=== PATIENT | female | born 1965 | race Caucasian/White ===

== ENCOUNTER 2017-07-23 12:17 | Emergency (ER) | payer OTHER, MEDICAID ==
[2017-07-23] MEDS ORDERED: SODIUM CHLORIDE 0.9% FLUSH 10 ML FLUSH IV FLUSH (12:30)
[2017-07-23] MEDS: SODIUM CHLOR 0.9% 1000 ML INJ 1,000 ML IV (12:44)
[2017-07-23] MEDS: ONDANSETRON HCL 4 MG/2 ML VIAL IVP (12:44)
[2017-07-23] MEDS: KETOROLAC TROMETHAMINE 30 MG/ML (IVP) VIAL IVP (12:45)
[2017-07-23 12:59] LABS: AUTOMATED NEUTROPHIL # 12.1 TH/MM3 (1.8-7.7); BASOPHIL # 0.1 TH/MM3 (0-0.2); BASOPHIL % 0.5 % (0.0-2.0); EOSINOPHIL % 0.2 % (0.0-4.0); HEMATOCRIT 40.1 % (35.0-46.0); HEMO FLAGS DIFF FINAL; HEMOGLOBIN 13.7 GM/DL (11.6-15.3); LYMPH % 10.8 % (9.0-44.0); LYMPHOCYTE # 1.7 TH/MM3 (1.0-4.8); MEAN CELL VOLUME 86.1 FL (80.0-100.0); MEAN CORPUSCULAR HEMOGLOBIN 29.4 PG (27.0-34.0); MEAN CORPUSCULAR HGB CONC 34.2 % (32.0-36.0); MEAN PLATELET VOLUME 8.9 FL (7.0-11.0); MONO % 9.6 % (0.0-8.0); MONOCYTE # 1.5 TH/MM3 (0-0.9); NEUT % 78.9 % (16.0-70.0); PLATELET COUNT 261 TH/MM3 (150-450); RED BLOOD COUNT 4.66 MIL/MM3 (4.00-5.30); WHITE BLOOD COUNT 15.4 TH/MM3 (4.0-11.0)
[2017-07-23 13:04] LABS: BACTERIA, URINE MOD /hpf; BILIRUBIN, URINE NEG (NEG); BLOOD, URINE MOD (NEG); COMMENT (UR) CULTURE INDICATED; CULTURE IF INDICATED CULTURE INDICATED; GLUCOSE,URINE 1000 mg/dL (NEG); KETONE, URINE NEG (NEG); MUCUS URINE FEW /lpf (OCC); NITRITE,URINE NEG (NEG); PH, URINE 5.5 (5.0-8.5); SQUAMOUS EPITHELIAL CELL URINE 1 /hpf (0-5); URINE COLOR LIGHT-YELLOW (YELLW/STRAW); URINE LEUKOCYTE ESTERASE LARGE (NEG); WHITE BLOOD CELL CLUMPS MANY
[2017-07-23 13:41] LABS: ALBUMIN 2.9 GM/DL (3.4-5.0); ALKALINE PHOSPHATASE 123 U/L (45-117); ALT (GPT) 17 U/L (10-53); ANION GAP 10 MEQ/L (5-15); AST (GOT) 11 U/L (15-37); BICARBONATE 25.3 MEQ/L (21.0-32.0); BLOOD UREA NITROGEN 19 MG/DL (7-18); CALCIUM 9.7 MG/DL (8.5-10.1); CHLORIDE 100 MEQ/L (98-107); CREATININE 1.22 MG/DL (0.50-1.00); GLOMERULAR FILTRATION RATE 46 ML/MIN (>89); GLUCOSE,RANDOM 332 MG/DL (74-106); LIPASE 723 U/L (73-393); POTASSIUM 4.2 MEQ/L (3.5-5.1); SODIUM (NA) 135 MEQ/L (136-145); TOTAL BILIRUBIN ADULT 0.6 MG/DL (0.2-1.0); TOTAL PROTEIN 7.7 GM/DL (6.4-8.2)
[2017-07-23] MEDS: ACETAMINOPHEN/HYDROcodone 325 MG/5 MG TAB PO (14:11)
[2017-07-23] MEDS: cefTRIAXone INJ 1,000 MG in SODIUM CHLORIDE 0.9% INJ 100 ML IV (14:11)
== END 2017-07-23 14:59 | disposition home or self-care (01) ==
LOC: NEPD 12:17
DX: N20.0 Calculus of kidney (principal); N39.0 Urinary tract infection, site not specified; B96.1 Klebsiella pneumoniae [K. pneumoniae] as the cause of diseases classified elsewhere; R31.9 Hematuria, unspecified; K80.20 Calculus of gallbladder without cholecystitis without obstruction; I10 Essential (primary) hypertension; I25.2 Old myocardial infarction; E78.00 Pure hypercholesterolemia, unspecified; E11.9 Type 2 diabetes mellitus without complications; J44.9 Chronic obstructive pulmonary disease, unspecified; M79.7 Fibromyalgia; F17.210 Nicotine dependence, cigarettes, uncomplicated; Z86.14 Personal history of Methicillin resistant Staphylococcus aureus infection; Z87.442 Personal history of urinary calculi; Z79.4 Long term (current) use of insulin; Z79.899 Other long term (current) drug therapy
CPT/HCPCS: 74176; 80053; 81001; 83690; 85025; 87077; 87086; 87186; 96361; 96365; 96375; 99284-25

== ENCOUNTER 2017-08-05 20:52 | Observation (INO) | payer OTHER ==
[~2017-08-05 20:52] MED LIST: ALBUAER3 INH; ATOR80TA45 PO; CEPH-460 PO; CETI10 PO; DOXA1TAB35 PO; DULO1CAP3 PO; FLUT50SP EACH NARE; HUMALOG SQ; LEVEMIR SQ; LOSA100T PO; LYRI225C PO; NORC5TAB PO; TAMS5CAP PO; TIZA4CAP3 PO; ZOFR4TAB3 SL
[2017-08-05 21:00] VITALS: BP 153/89; PULSE 99; RESP 21; TEMP 97.6; O2SAT 96
[2017-08-05] MEDS ORDERED: ASPIRIN 81 MG CHEW TAB PO ONE (21:15)
[2017-08-05] MEDS ORDERED: SODIUM CHLORIDE 0.9% FLUSH 10 ML FLUSH IVF PRN (21:15)
[2017-08-05] MEDS ORDERED: NITROGLYCERIN 2% OINT 1 GM PACKET TOP ONE (21:15)
[2017-08-05] MEDS ORDERED: SODIUM CHLORID 0.9% 500 ML INJ 500 ML IV ONE (21:15)
--- NOTE | 2017-08-05 21:20 | PD ---
HPI Chief Complaint: Respiratory Distress Time Seen by Provider: 21:05 Travel History International Travel<30 days: No Contact w/Intl Traveler<30days: No Traveled to known affect area: No History of Present Illness HPI The patient is a 52-year-old female who presents to the emergency department for chest pain. The patient states she was walking around [facility] earlier today when she became short of breath and lightheaded. The patient states she would walk several feet and her symptoms would progress, she felt like she was going to "pass out". The patient then developed some chest tightness that is nonradiating, but is associated with mild nausea. The patient does have a history of similar symptoms 2 years ago and states that she had a coronary stent placed at that time. The patient does have a history of hypertension, hyperlipidemia, tobacco use, and diabetes. The patient is currently followed by her force variation equipment tender, Dr. Cohen. The patient does note she has exertional shortness of breath with her symptoms. The patient went home and tried an albuterol nebulizer, however, this did not improve her symptoms. Symptoms are moderate. The patient does take aspirin daily, however, has not taken her aspirin today. The patient denies any recent hospitalizations, surgeries, travel, or history of pulmonary embolism/DVT. PFSH Past Medical History Hx Anticoagulant Therapy: Yes (81mg a day) Cardiovascular Problems: Yes High Cholesterol: Yes COPD: Yes Diabetes: Yes Fibromyalgia: Yes Hypertension: Yes Musculoskeletal: Yes (FIBROMYALGIA ) Respiratory: Yes Integumentary: Yes (HX MRSA OF NAVEL AND GREAT TOE) Menopausal: Yes Tubal Ligation: Yes (1989) Past Surgical History Genitourinary Surgery: Yes (LITHROTRIPSY) Oral Surgery: Yes (lithotripsy) Tonsillectomy: Yes Social History Alcohol Use: No (SOC) Tobacco Use: Yes (03/20 PPD) Substance Use: No Allergies-Medications (Allergen,Severity, Reaction): Coded Allergies: tomato (Unverified Allergy, Unknown, hives, 08/05/17) Uncoded Allergies: CITRUS (Adverse Reaction, Unknown, HIVES, 11/28/15) Reported Meds & Prescriptions Reported Meds & Active Scripts Active Zofran Odt (Ondansetron Odt) 4 Mg Tab 4 Mg SL Q8HR PRN Reported Naproxen 250 Mg Tab 250 Mg PO BID Levemir Inj (Insulin Detemir) 1,000 unit/ 10 ML Vial 60 Units SQ BID Do not mix with any other Insulin. Humalog Inj (Insulin Human Lispro) 1,000 Unit/10 Ml Vial 5-25 Units SQ ACHS Max dose at bedtime:( )units; sugars < 70,(0)units; sugars 150-199,(5)units; sugars 200-249,(10)units; sugars 250-299,(15)units; sugars 300-349,(20)units; sugars more than 349,(25)units. Proair Hfa 8.5 GM Inh (Albuterol Sulfate) 90 Mcg/Act Aer 2 Puff INH Q4-6H PRN 108 mcg/actuation Fluticasone Nasal [place] 50 Mcg/Act Naspr 50 Mcg EACH NARE DAILY 50 mcg/spray Cetirizine (Cetirizine HCl) 10 Mg Tab 10 Mg PO DAILY Doxazosin (Doxazosin Mesylate) 2 Mg Tab 2 Mg PO DAILY Atorvastatin (Atorvastatin Calcium) 80 Mg Tab 80 Mg PO HS Losartan (Losartan Potassium) 100 Mg Tab 100 Mg PO DAILY Duloxetine DR (Duloxetine HCl) 60 Mg Capdr 60 Mg PO DAILY Tizanidine (Tizanidine HCl) 4 Mg Cap 4 Mg PO TID Lyrica (Pregabalin) 225 Mg Cap 225 Mg PO BID Review of Systems Except as stated in HPI: all other systems reviewed are Neg General / Constitutional: No: Fever HENT: Positive: Lightheadedness Cardiovascular: Positive: Chest Pain or Discomfort, Dyspnea on exertion, No: Diaphoresis Respiratory: Positive: Shortness of Breath Gastrointestinal: Positive: Nausea, No: Abdominal Pain Musculoskeletal: No: Edema Neurologic: Positive: Dizziness Physical Exam Narrative GENERAL: Awake, alert, nontoxic-appearing 52-year-old female who appears her stated age and is in no acute respiratory distress. SKIN: Focused skin assessment warm/dry. HEAD: Atraumatic. Normocephalic. EYES: No injection or drainage. ENT: No nasal bleeding or discharge. Mucous membranes pink and moist. NECK: Trachea midline. No JVD. CARDIOVASCULAR: Regular rate and rhythm. No murmur appreciated. RESPIRATORY: No accessory muscle use. Clear to auscultation. Breath sounds equal bilaterally. No wheezes noted. GASTROINTESTINAL: Abdomen soft, obese, no rebound tenderness. No epigastric tenderness. MUSCULOSKELETAL: No obvious deformities. No clubbing. No cyanosis. No edema. NEUROLOGICAL: Awake and alert. No obvious cranial nerve deficits. Motor grossly within normal limits. Normal speech. PSYCHIATRIC: Appropriate mood and affect; insight and judgment normal. Data Data Last Documented VS Vital Signs Date Time Temp Pulse Resp B/P (MAP) Pulse Ox O2 Delivery O2 Flow Rate FiO2 08/05/17 21:21 90 22 178/92 (120) 97 Room Air 175/80 (111) 08/05/17 21:00 97.6 Orders Orders Electrocardiogram (08/05/17 21:15) B-Type Natriuretic Peptide (08/05/17 21:15) Ckmb (Isoenzyme) Profile (08/05/17:15) Complete Blood Count With Diff (08/05/17:) Comprehensive Metabolic Panel (08/05/17 21:15) Magnesium (Mg) (08/05/17 21:15) Prothrombin Time / Inr (Pt) (08/05/17:15) Act Partial Throm Time (Ptt) (08/05/17 21:15) Troponin I (08/05/17 21:15) Lipase (08/05/17 21:15) Ecg Monitoring (08/05/17:15) Bilateral Bp Monitoring (08/05/17:15) Iv Access Insert/Monitor (08/05/17:15) Oximetry (08/05/17 21:15) Oxygen Administration (08/05/17 21:15) Aspirin Chew (Aspirin Chew) (08/05/17 21:15) Nitroglycerin 2% Oint (Nitroglycerin 2% (08/05/17 21:15) Sodium Chloride 0.9% Flush (Ns Flush) (08/05/17 21:15) Sodium Chlorid 0.9% 500 Ml Inj (Ns 500 M (08/05/17 21:15) Chest, Pa & Lat (08/05/17 21:15) Insulin Aspart Inj (Novolog Inj) (08/05/17 22:15) Insulin Human Regular Inj (Novolin R Inj (08/05/17 22:15) Sodium Chlor 0.9% 1000 Ml Inj (Ns 1000 M (08/05/17 22:15) Labs Laboratory Tests Test 08/05/17 21:20 White Blood Count 10.7 TH/MM3 Red Blood Count 4.83 MIL/MM3 Hemoglobin 14.3 GM/DL Hematocrit 42.1 % Mean Corpuscular Volume 87.3 FL Mean Corpuscular Hemoglobin 29.7 PG Mean Corpuscular Hemoglobin Concent 34.0 % Red Cell Distribution Width 14.2 % Platelet Count 289 TH/MM3 Mean Platelet Volume 9.0 FL Neutrophils (%) (Auto) 61.5 % Lymphocytes (%) (Auto) 29.8 % Monocytes (%) (Auto) 6.9 % Eosinophils (%) (Auto) 1.1 % Basophils (%) (Auto) 0.7 % Neutrophils # (Auto) 6.6 TH/MM3 Lymphocytes # (Auto) 3.2 TH/MM3 Monocytes # (Auto) 0.7 TH/MM3 Eosinophils # (Auto) 0.1 TH/MM3 Basophils # (Auto) 0.1 TH/MM3 CBC Comment DIFF FINAL Differential Comment Prothrombin Time 9.9 SEC Prothromb Time International Ratio 1.0 RATIO Activated Partial Thromboplast Time 25.2 SEC Blood Urea Nitrogen 29 MG/DL Creatinine 1.45 MG/DL Random Glucose 470 MG/DL Total Protein 7.4 GM/DL Albumin 3.3 GM/DL Calcium Level 9.2 MG/DL Magnesium Level 1.8 MG/DL Alkaline Phosphatase 114 U/L Aspartate Amino Transf (AST/SGOT) 13 U/L Alanine Aminotransferase (ALT/SGPT) 26 U/L Total Bilirubin 0.5 MG/DL Sodium Level 134 MEQ/L Potassium Level 4.3 MEQ/L Chloride Level 99 MEQ/L Carbon Dioxide Level 24.2 MEQ/L Anion Gap 11 MEQ/L Estimat Glomerular Filtration Rate 38 ML/MIN Total Creatine Kinase 88 U/L Troponin I LESS THAN 0.02 NG/ML B-Type Natriuretic Peptide 15 PG/ML Lipase 668 U/L [facility] Medical Decision Making Medical Screen Exam Complete: Yes Emergency Medical Condition: Yes Medical Record Reviewed: Yes Interpretation(s) EKG reveals normal sinus rhythm with a rate of 91. Q-wave noted in lead III. Last Impressions Chest X-Ray 08/05/172114 Signed Impressions: Service Date/Time: Saturday, August 05, 2017 21:48 - CONCLUSION: 1. No acute cardiopulmonary disease. Sandor Thomas MD Laboratory Tests Test 08/05/17 21:20 White Blood Count 10.7 TH/MM3 Red Blood Count 4.83 MIL/MM3 Hemoglobin 14.3 GM/DL Hematocrit 42.1 % Mean Corpuscular Volume 87.3 FL Mean Corpuscular Hemoglobin 29.7 PG Mean Corpuscular Hemoglobin Concent 34.0 % Red Cell Distribution Width 14.2 % Platelet Count 289 TH/MM3 Mean Platelet Volume 9.0 FL Neutrophils (%) (Auto) 61.5 % Lymphocytes (%) (Auto) 29.8 % Monocytes (%) (Auto) 6.9 % Eosinophils (%) (Auto) 1.1 % Basophils (%) (Auto) 0.7 % Neutrophils # (Auto) 6.6 TH/MM3 Lymphocytes # (Auto) 3.2 TH/MM3 Monocytes # (Auto) 0.7 TH/MM3 Eosinophils # (Auto) 0.1 TH/MM3 Basophils # (Auto) 0.1 TH/MM3 CBC Comment DIFF FINAL Differential Comment Prothrombin Time 9.9 SEC Prothromb Time International Ratio 1.0 RATIO Activated Partial Thromboplast Time 25.2 SEC Blood Urea Nitrogen 29 MG/DL Creatinine 1.45 MG/DL Random Glucose 470 MG/DL Total Protein 7.4 GM/DL Albumin 3.3 GM/DL Calcium Level 9.2 MG/DL Magnesium Level 1.8 MG/DL Alkaline Phosphatase 114 U/L Aspartate Amino Transf (AST/SGOT) 13 U/L Alanine Aminotransferase (ALT/SGPT) 26 U/L Total Bilirubin 0.5 MG/DL Sodium Level 134 MEQ/L Potassium Level 4.3 MEQ/L Chloride Level 99 MEQ/L Carbon Dioxide Level 24.2 MEQ/L Anion Gap 11 MEQ/L Estimat Glomerular Filtration Rate 38 ML/MIN Total Creatine Kinase 88 U/L Troponin I LESS THAN 0.02 NG/ML B-Type Natriuretic Peptide 15 PG/ML Lipase 668 U/L CTA of the thoracic abdominal aorta with 3D reconstruction reveals no aortic aneurysm or dissection. Coronary artery calcifications noted. Chronic appearing lower lobe interstitial fibrosis. Small left kidney with cortical scarring consistent with prior insult. Bladder is moderately distended which may reflect some degree of bladder or obstruction. Fat-containing left inguinal hernia. Differential Diagnosis Differential diagnosis includes acute coronary syndrome, STEMI, COPD exacerbation, bronchitis, pneumonia, GERD, esophageal spasm, dissection, pulmonary embolism. Narrative Course IV was established, labs are drawn and sent, and the patient was placed on cardiac telemetry monitoring and continuous pulse oximetry monitoring. EKG was ordered and interpreted. Chest x-ray was obtained. The patient was administered aspirin 162 mg orally and 1 inch of nitropaste was placed on the chest wall. EKG reveals normal sinus rhythm, no acute ischemic changes. Chest x-ray is unremarkable. The patient's creatinine is slightly elevated at 1.45, glucose was elevated to 470. The patient was administered 1 L of IV fluids, insulin intravenously and subcutaneously. The patient's lipase is slightly elevated 668 but the patient has no abdominal pain, she has chest tightness with shortness of breath, lightheadedness, dizziness, and exertional symptoms. I did review the EMR, the patient had an AZ several years ago and had a cardiac catheterization performed by Dr. Laith Astorga who placed a stent in RCA, the patient was also noted to have some LAD disease at that time. As the patient does have elevated glucose greater than 400, I do not believe the patient is a candidate for the chest pain center. Therefore, the on-call medical service was paged for 23 hour observation. The patient may benefit from serial cardiac enzymes and possible stress test including nuclear medicine myocardial perfusion scan as she does have a history of previous stent placement. Physician Communication Physician Communication The on-call medical service was paged for 23 hour observation. Diagnosis Primary Impression: Chest pain Qualified Codes: R07.9 - Chest pain, unspecified Additional Impressions: Hyperglycemia Acute kidney injury Admitting Information Admitting Physician Requests: Observation Condition: Stable Henry Tsai MD August 05, 2017 21:20
[2017-08-05 21:21] VITALS: BP_SYST 175; BP_SYST 178; BP_DIAS 80; BP_DIAS 92; PULSE 90; RESP 22; O2SAT 97
[2017-08-05] MEDS ORDERED: NAPR250T4 PO (21:27)
[2017-08-05 21:33] LABS: AUTOMATED NEUTROPHIL # 6.6 TH/MM3 (1.8-7.7); BASOPHIL # 0.1 TH/MM3 (0-0.2); BASOPHIL % 0.7 % (0.0-2.0); EOSINOPHIL # 0.1 TH/MM3 (0-0.4); EOSINOPHIL % 1.1 % (0.0-4.0); HEMATOCRIT 42.1 % (35.0-46.0); HEMOGLOBIN 14.3 GM/DL (11.6-15.3); LYMPH % 29.8 % (9.0-44.0); LYMPHOCYTE # 3.2 TH/MM3 (1.0-4.8); MEAN CELL VOLUME 87.3 FL (80.0-100.0); MEAN CORPUSCULAR HEMOGLOBIN 29.7 PG (27.0-34.0); MONO % 6.9 % (0.0-8.0); MONOCYTE # 0.7 TH/MM3 (0-0.9); NEUT % 61.5 % (16.0-70.0); PLATELET COUNT 289 TH/MM3 (150-450); RED BLOOD COUNT 4.83 MIL/MM3 (4.00-5.30); RED CELL DISTRIBUTION WIDTH 14.2 % (11.6-17.2); WHITE BLOOD COUNT 10.7 TH/MM3 (4.0-11.0)
[2017-08-05 21:55] LABS: PROTHROMBIN TIME - PATIENT 9.9 SEC (9.8-11.6)
--- NOTE | 2017-08-05 22:03 | RADRPT ---
EXAM DATE/TIME: 08/05/2017 21:48 [facility] COMPARISON: No previous studies available for comparison. INDICATIONS : Chest pain. MEDICAL HISTORY : Myocardial infarction. SURGICAL HISTORY : Cardiac stent placement. ENCOUNTER: Initial ACUITY: 1 day PAIN SCORE: 5/10 LOCATION: Bilateral chest FINDINGS: PA and lateral views of the chest demonstrate the lungs to be symmetrically aerated without evidence of mass, infiltrate or effusion. The cardiomediastinal contours are unremarkable. Osseous structure s are intact. CONCLUSION: 1. No acute cardiopulmonary disease. Sandor Thomas MD on August 05, 2017 at 22:01 Board Certified Radiologist. This report was verified electronically.
[2017-08-05 22:07] LABS: ALBUMIN 3.3 GM/DL (3.4-5.0); ALKALINE PHOSPHATASE 114 U/L (45-117); ALT (GPT) 26 U/L (10-53); AST (GOT) 13 U/L (15-37); BICARBONATE 24.2 MEQ/L (21.0-32.0); BLOOD UREA NITROGEN 29 MG/DL (7-18); CALCIUM 9.2 MG/DL (8.5-10.1); CHLORIDE 99 MEQ/L (98-107); CREATININE 1.45 MG/DL (0.50-1.00); GLOMERULAR FILTRATION RATE 38 ML/MIN (>89); MAGNESIUM 1.8 MG/DL (1.5-2.5); SODIUM (NA) 134 MEQ/L (136-145); TOTAL BILIRUBIN ADULT 0.5 MG/DL (0.2-1.0); TOTAL PROTEIN 7.4 GM/DL (6.4-8.2); TROPONIN I LESS THAN 0.02 NG/ML (0.02-0.05)
[2017-08-05 22:11] LABS: GLUCOSE,RANDOM 470 MG/DL (74-106)
[2017-08-05] MEDS ORDERED: INSULIN HUMAN REGULAR 1,000 UNITS/10 ML VIAL IV PUSH ONE (22:15)
[2017-08-05] MEDS ORDERED: INSULIN ASPART 1,000 UNITS/10 ML VIAL SQ ONE (22:15)
[2017-08-05] MEDS ORDERED: SODIUM CHLOR 0.9% 1000 ML INJ 1,000 ML IV ONE (22:15)
--- NOTE | 2017-08-05 23:08 | HHI.HP ---
HPI Service [facility] Primary Care Physician Blue Rebolledo DO Admission Diagnosis Chest pain, exertional dyspnea, hyperglycemia, acute kidney injury Diagnoses: (1) Chest pain Diagnosis: Principal (2) Pancreatitis Diagnosis: Principal (3) Tobacco abuse Diagnosis: Principal (4) RAYSHAWN (acute kidney injury) Diagnosis: Principal (5) DM (diabetes mellitus) Diagnosis: Principal Travel History International Travel<30 Days: No Contact w/Intl Traveler <30 Da: No Traveled to Known Affected Are: No History of Present Illness This is a 52-year-old female with a PMH of HTN, Fibromyalgia, COPD, DM and Tobacco Abuse who presented to ER with complaints of chest pain. States symptoms have been ongoing for a few days, chest pain substernal, intermittent, moderate to severe, 8/10, non-radiating. Also notes associated SOB while walking around in [facility] today. No fever, chills or cough. Follows w/ Universal Winding Machine Operator in [place], Dr. Cohen w/ previous stent placement few years ago. On arrival, BP 133/89, HR 89, O2 sat 97% on RA, Afebrile. CBC unremarkable. Creatinine 1.45, previously 1.22 on 07/23/2017. BS 470, states she had a [employer]eps[employer] and 2 chocolate ice cream bars prior to arrival. Trop negative. INR 1.0. Lipase 668. CXR w/ no acute findings. Review of Systems Except as stated in HPI: all other systems reviewed are Neg ROS: 14 point review of systems otherwise negative. Past Family Social History Past Medical History PMH: HTN, Fibromyalgia, COPD, DM and Tobacco Abuse Past Surgical History PAST SURGICAL HISTORY: Lithotripsy, Tonsillectomy Allergies: Coded Allergies: tomato (Unverified Allergy, Unknown, hives, 08/05/17) Uncoded Allergies: CITRUS (Adverse Reaction, Unknown, HIVES, 11/28/15) Family History PAST FAMILY HISTORY: Reviewed. No h/o DM or CAD Social History PAST SOCIAL HISTORY: Occasional alcohol. Smokes 1.5ppd. Negative for drugs. Physical Exam Vital Signs Vital Signs Date Time Temp Pulse Resp B/P (MAP) Pulse Ox O2 Delivery O2 Flow Rate FiO2 08/05/17 21:21 90 22 178/92 (120) 97 Room Air 175/80 (111) 08/05/17 21:18 96 Room Air 08/05/17 21:00 97.6 99 21 153/89 (110) 96 Physical Exam PE: GENERAL: Middle-aged white female in no acute distress. HEENT: PERRLA, EOMI. No scleral icterus or conjunctival pallor. No lid lag or facial droop. CARDIOVASCULAR: Regular rate and rhythm. No obvious murmurs to auscultation. No chest tenderness to palpation. RESPIRATORY: No obvious rhonchi or wheezing. Clear to auscultation. Breath sounds equal bilaterally. GASTROINTESTINAL: Abdomen soft, non-tender, nondistended. BS normal. MUSCULOSKELETAL: Extremities without clubbing, cyanosis, or edema. No obvious deformities. NEUROLOGICAL: Awake, alert and oriented x4. No focal neurologic deficits. Moving both upper and lower extremities spontaneously. Laboratory Laboratory Tests Test 08/05/17 21:20 White Blood Count 10.7 Red Blood Count 4.83 Hemoglobin 14.3 Hematocrit 42.1 Mean Corpuscular Volume 87.3 Mean Corpuscular Hemoglobin 29.7 Mean Corpuscular Hemoglobin Concent 34.0 Red Cell Distribution Width 14.2 Platelet Count 289 Mean Platelet Volume 9.0 Neutrophils (%) (Auto) 61.5 Lymphocytes (%) (Auto) 29.8 Monocytes (%) (Auto) 6.9 Eosinophils (%) (Auto) 1.1 Basophils (%) (Auto) 0.7 Neutrophils # (Auto) 6.6 Lymphocytes # (Auto) 3.2 Monocytes # (Auto) 0.7 Eosinophils # (Auto) 0.1 Basophils # (Auto) 0.1 CBC Comment DIFF FINAL Differential Comment Prothrombin Time 9.9 Prothromb Time International Ratio 1.0 Activated Partial Thromboplast Time 25.2 Blood Urea Nitrogen 29 Creatinine 1.45 Random Glucose 470 Total Protein 7.4 Albumin 3.3 Calcium Level 9.2 Magnesium Level 1.8 Alkaline Phosphatase 114 Aspartate Amino Transf (AST/SGOT) 13 Alanine Aminotransferase (ALT/SGPT) 26 Total Bilirubin 0.5 Sodium Level 134 Potassium Level 4.3 Chloride Level 99 Carbon Dioxide Level 24.2 Anion Gap 11 Estimat Glomerular Filtration Rate 38 Total Creatine Kinase 88 Troponin I LESS THAN 0.02 B-Type Natriuretic Peptide 15 Lipase 668 Result Diagram: 08/05/17211908/05/172119 Caprini VTE Risk Assessment Caprini VTE Risk Assessment: No/Low Risk (score <= 1) Caprini Risk Assessment Model Point Value = 1 Point Value = 2 Point Value = 3 Point Value = 5 Age 41-60 Minor surgery BMI > 25 kg/m2 Swollen legs Varicose veins or History of unexplained or recurrent spontaneous Oral contraceptives or hormone replacement Sepsis (< 1 month) Serious lung disease, including pneumonia (< 1 month) Abnormal pulmonary function Acute myocardial infarction Congestive heart failure (< 1 month) History of inflammatory bowel disease Medical patient at bed rest Age 61-74 Arthroscopic surgery Major open surgery (> 45 min) Laparoscopic surgery (> 45 min) Malignancy Confined to bed (> 72 hours) Immobilizing plaster cast Central venous access Age >= 75 History of VTE Family history of VTE Factor V Leiden Prothrombin [id number] Lupus anticoagulant Anticardiolipin antibodies Elevated serum homocysteine Heparin-induced thrombocytopenia Other congenital or acquired thrombophilia Stroke (< 1 month) Elective arthroplasty Hip, pelvis, or leg fracture Acute spinal cord injury (< 1 month) Prophylaxis Regimen Total Risk Factor Score Risk Level Prophylaxis Regimen 0-1 Low Early ambulation 2 Moderate Order ONE of the following: *Sequential Compression Device (SCD) *Heparin 5000 units SQ BID 3-4 Higher Order ONE of the following medications: *Heparin 5000 units SQ TID *Enoxaparin/Lovenox 40 mg SQ daily (WT < 150 kg, CrCl > 30 mL/min) *Enoxaparin/Lovenox 30 mg SQ daily (WT < 150 kg, CrCl > 10-29 mL/min) *Enoxaparin/Lovenox 30 mg SQ BID (WT < 150 kg, CrCl > 30 mL/min) AND/OR *Sequential Compression Device (SCD) 5 or more Highest Order ONE of the following medications: *Heparin 5000 units SQ TID (Preferred with Epidurals) *Enoxaparin/Lovenox 40 mg SQ daily (WT < 150 kg, CrCl > 30 mL/min) *Enoxaparin/Lovenox 30 mg SQ daily (WT < 150 kg, CrCl > 10-29 mL/min) *Enoxaparin/Lovenox 30 mg SQ BID (WT < 150 kg, CrCl > 30 mL/min) AND *Sequential Compression Device (SCD) Assessment and Plan Problem List: (1) Chest pain ICD Code: R07.9 - Chest pain, unspecified Status: Acute (2) Pancreatitis ICD Code: K85.90 - Acute pancreatitis without necrosis or infection, unspecified (3) RAYSHAWN (acute kidney injury) ICD Code: N17.9 - Acute kidney failure, unspecified (4) DM (diabetes mellitus) ICD Code: E11.9 - Type 2 diabetes mellitus without complications (5) Tobacco abuse ICD Code: Z72.0 - Tobacco use Assessment and Plan A/P: 1. Chest Pain: intermittent c/o chest pain w/ associated dyspnea w/ exertion, h/o CAD w/ stent placement, follows w/ Dr. Cohen in [place]. Initial trop negative, EKG w/ no acute ischemia, admit for Observation, telemetry, check serial cardiac enzymes, ASA, Statin, start Metoprolol. Cardiology eval as needed. 2. Pancreatitis: Lipase 668, no c/o abdominal pain, nausea or vomiting. IVF, repeat Lipase in am. 3. RAYSHAWN: Creatinine 1.45, previously 1.22 on 07/23/17, IVF for hydration, repeat labs in am. 4. DM: Uncontrolled. Non-compliant w/ diet. Resume home Insulin, sliding scale w/ Accu-Cheks. Check Hgb A1c. 5. Tobacco Abuse: Pt counselled. No NicoDerm to avoid vasoconstriction. Ativan prn if needed. 6. DVT Prophylaxis: SCD/Teds 7. Social work for d/c planning as needed. 8. Case discussed w/ ER physician at length, labs/records/imaging reviewed by me. Problem Qualifiers (1) Chest pain: Qualified Codes: R07.9 - Chest pain, unspecified Clara Sweet MD August 05, 2017 23:08
[2017-08-05] MEDS ORDERED: METOPROLOL TARTRATE 25 MG TAB PO ONE (23:15)
[2017-08-05] MEDS ORDERED: ACETAMINOPHEN 325 MG TAB PO PRN (23:15)
[2017-08-05] MEDS ORDERED: MORPHINE SULFATE 2 MG/ML SYRINGE IV PUSH PRN (23:15)
[2017-08-05] MEDS ORDERED: LACTULOSE SYRUP 20 GM/30 ML CUP PO PRN (23:15)
[2017-08-05] MEDS ORDERED: MAGNESIUM HYDROXIDE SUSP 30 ML CUP PO PRN (23:15)
[2017-08-05] MEDS ORDERED: GLUCAGON 1 MG/ML VIAL OTHER PRN (23:15)
[2017-08-05] MEDS ORDERED: METOCLOPRAMIDE HCL 10 MG/2 ML VIAL IV PUSH PRN (23:15)
[2017-08-05] MEDS ORDERED: ACETAMINOPHEN/HYDROcodone 325 MG/5 MG TAB PO PRN (23:15)
[2017-08-05] MEDS ORDERED: SODIUM CHLORIDE 0.9% FLUSH 10 ML FLUSH IV FLUSH PRN (23:15)
[2017-08-05] MEDS ORDERED: BISACODYL 10 MG SUPP RECTAL PRN (23:15)
[2017-08-05] MEDS ORDERED: SENNOSIDES 8.6 MG TAB PO PRN (23:15)
[2017-08-05] MEDS ORDERED: DEXTROSE 50% IN WATER 50 ML VIAL(D50) IV PUSH PRN (23:15)
[2017-08-06] VITALS (7 sets, daily range): BP systolic 123–151; BP diastolic 61–80; PULSE 61–82; RESP 16–20; TEMP 97.9–98.3; O2SAT 95–97
[2017-08-06] MEDS: SODIUM CHLOR 0.9% 1000 ML INJ 1,000 ML IV SCH ×2 (00:05→09:05)
--- NOTE | 2017-08-06 08:06 | EKG ---
Date Performed: 08/05/2017 Time Performed: 21:18:06 PTAGE: 52 years EKG: Sinus rhythm NONSPECIFIC ST ABNORMALITY ABNORMAL ECG PREVIOUS TRACING : 12/14/2015 05.18 No significant change from previous tracing noted. DOCTOR: Dariusz Kaur Interpretating Date/Time 08/06/2017 08:05:36
[2017-08-06] MEDS ORDERED: DOXAZOSIN MESYLATE 2 MG TAB PO SCH (09:00)
[2017-08-06] MEDS ORDERED: DULoxetine HCl DR 60 MG CAP PO SCH (09:00)
[2017-08-06] MEDS ORDERED: METOPROLOL TARTRATE 25 MG TAB PO SCH (09:00)
[2017-08-06] MEDS ORDERED: PREGABALIN 75 MG CAP PO SCH (09:00)
[2017-08-06] MEDS ORDERED: SODIUM CHLORIDE 0.9% FLUSH 10 ML FLUSH IV FLUSH SCH (09:00)
[2017-08-06] MEDS ORDERED: INSULIN DETEMIR 100 UNITS/ML VIAL SQ SCH ×2 (09:00→21:00)
[2017-08-06] MEDS ORDERED: DOCUSATE SODIUM 50 MG/SENNA 8.6 MG TAB PO SCH (09:00)
[2017-08-06] MEDS ORDERED: ASPIRIN EC 81 MG TABEC PO SCH (09:00)
[2017-08-06] MEDS: INSULIN ASPART SUPPLEMENTAL SCALE SQ SCH ×2 (09:30→13:24)
--- NOTE | 2017-08-06 11:32 | HHI.PR ---
Subjective Remarks Follow-up chest pain. States she is better denies chest pain, shortness of breath and abdominal pain. Tolerated breakfast. She wants to go home to be with her dog and boyfriend. States she has an appointment with her printing manager for stress test. History of coronary artery disease status post RCA stent in 2016. Also had recent CT of the abdomen pelvis with gallstone and unremarkable pancreas. Objective Vitals Vital Signs Date Time Temp Pulse Resp B/P (MAP) Pulse Ox O2 Delivery O2 Flow Rate FiO2 08/06/17 08:28 98.3 74 16 132/76 (94) 95 08/06/17 07:31 67 08/06/17 05:38 98.3 75 16 131/75 (93) 95 08/06/17 01:42 98.2 61 16 123/69 (87) 97 08/06/17 01:08 08/06/17 00:12 82 20 151/80 (103) 97 Room Air 08/05/17 21:21 90 22 178/92 (120) 97 Room Air 175/80 (111) 08/05/17 21:18 96 Room Air 08/05/17 21:00 97.6 99 21 153/89 (110) 96 I/O 08/05/17 08/05/17 08/05/17 08/06/17 08/06/17 08/06/17 07:00 15:00 23:00 07:00 15:00 23:00 Intake Total 500 ml 1000 ml Balance 500 ml 1000 ml Intake IV Total 500 ml 1000 ml Result Diagram: 08/05/17211908/05/172119 Imaging Last Impressions Chest X-Ray 08/05/172114 Signed Impressions: Service Date/Time: Saturday, August 05, 2017 21:48 - CONCLUSION: 1. No acute cardiopulmonary disease. Sandor Thomas MD Objective Remarks GENERAL: Middle-aged white female in no acute distress. CARDIOVASCULAR: Regular rate and rhythm. No obvious murmurs to auscultation. No chest tenderness to palpation. RESPIRATORY: No obvious rhonchi or wheezing. Clear to auscultation. Breath sounds equal bilaterally. GASTROINTESTINAL: Abdomen soft, non-tender, nondistended. BS normal. MUSCULOSKELETAL: Extremities without clubbing, cyanosis, or edema. No obvious deformities. NEUROLOGICAL: Awake, alert and oriented x4. No focal neurologic deficits. Moving both upper and lower extremities spontaneously. A/P Problem List: (1) Chest pain ICD Code: R07.9 - Chest pain, unspecified Status: Acute (2) Pancreatitis ICD Code: K85.90 - Acute pancreatitis without necrosis or infection, unspecified (3) RAYSHAWN (acute kidney injury) ICD Code: N17.9 - Acute kidney failure, unspecified (4) DM (diabetes mellitus) ICD Code: E11.9 - Type 2 diabetes mellitus without complications (5) Tobacco abuse ICD Code: Z72.0 - Tobacco use Assessment and Plan 1. Chest Pain: intermittent c/o chest pain w/ associated dyspnea w/ exertion, h/o CAD w/ stent placement, follows w/ Dr. Cohen in [place]. Initial trop negative, EKG w/ no acute ischemia, telemetry, check serial cardiac enzymes, ASA, Statin, start Metoprolol. Cardiology eval as needed. She is pain -free lab work today (she initially refused because he wanted to go home). States she will undergo stress test with her printing manager next visit 2. Pancreatitis: Lipase 668, no c/o abdominal pain, nausea or vomiting. IVF, repeat Lipase pending. Improved recent CT showed gallstone. Advice follow-up with general surgery to consider cholecystectomy when cleared by cardiology 3. RAYSHAWN: Creatinine 1.45, previously 1.22 on 07/23/17, IVF for hydration, repeat labs pending. Nonoliguric 4. DM: Uncontrolled. Non-compliant w/ diet. Resume home Insulin, sliding scale w/ Accu-Cheks. Add diabetic diet and check Hgb A1c. 5. Tobacco Abuse: Pt counselled. No NicoDerm to avoid vasoconstriction. Ativan prn if needed. 6. DVT Prophylaxis: SCD/Teds Discharge Planning Discharge patient to home if she rules out for DC and repeat lipase within normal limits Condition on discharge: Improved Regular Diet as tolerated Ad Fatoumata activity no driving Rx written: Lortab and metoprolol Follow-up with primary care physician and cardiology Problem Qualifiers (1) Chest pain: Qualified Codes: R07.9 - Chest pain, unspecified Jorge Garcia MD August 06, 2017 11:32
[2017-08-06] MEDS ORDERED: HYDR-3516 PO (11:35)
[2017-08-06] MEDS ORDERED: METO25TA3 PO (11:35)
[2017-08-06] MEDS ORDERED: ECASA81 PO (11:35)
--- NOTE | 2017-08-06 11:35 | HHI.DCPOC ---
Discharge Care Plan Diagnosis: (1) Pancreatitis (2) Chest pain Your Health Problems Are: Difficulty with ADL Exercise Tolerance Goals to Promote Your Health * To prevent worsening of your condition and complications * To maintain your health at the optimal level Directions to Meet Your Goals Take your medications as prescribed Follow your dietary instruction Follow activity as directed Keep your appointments as scheduled Take your immunizations and boosters as scheduled If your symptoms worsen call your PCP, if no PCP go to Urgent Care Center or Emergency Room Smoking is Dangerous to Your Health. Avoid second hand smoke Call the 24-hour hour crisis hotline for domestic abuse at Jorge Garcia MD August 06, 2017 11:35
[2017-08-06 12:49] LABS: AUTOMATED NEUTROPHIL # 5.5 TH/MM3 (1.8-7.7); BASOPHIL # 0.1 TH/MM3 (0-0.2); BASOPHIL % 0.7 % (0.0-2.0); EOSINOPHIL # 0.1 TH/MM3 (0-0.4); EOSINOPHIL % 1.2 % (0.0-4.0); HEMATOCRIT 37.9 % (35.0-46.0); HEMOGLOBIN 12.9 GM/DL (11.6-15.3); LYMPH % 29.7 % (9.0-44.0); LYMPHOCYTE # 2.7 TH/MM3 (1.0-4.8); MEAN CELL VOLUME 87.5 FL (80.0-100.0); MEAN CORPUSCULAR HEMOGLOBIN 29.7 PG (27.0-34.0); MEAN CORPUSCULAR HGB CONC 33.9 % (32.0-36.0); MEAN PLATELET VOLUME 9.3 FL (7.0-11.0); MONO % 7.2 % (0.0-8.0); MONOCYTE # 0.6 TH/MM3 (0-0.9); NEUT % 61.2 % (16.0-70.0); PLATELET COUNT 255 TH/MM3 (150-450); RED BLOOD COUNT 4.33 MIL/MM3 (4.00-5.30); RED CELL DISTRIBUTION WIDTH 14.2 % (11.6-17.2)
[2017-08-06 13:20] LABS: TROPONIN I LESS THAN 0.02 NG/ML (0.02-0.05)
[2017-08-06 13:26] LABS: ALBUMIN 2.9 GM/DL (3.4-5.0); ALKALINE PHOSPHATASE 92 U/L (45-117); ALT (GPT) 18 U/L (10-53); AST (GOT) 11 U/L (15-37); BICARBONATE 24.7 MEQ/L (21.0-32.0); BLOOD UREA NITROGEN 25 MG/DL (7-18); CALCIUM 8.8 MG/DL (8.5-10.1); CHLORIDE 102 MEQ/L (98-107); CHOLESTEROL 159 MG/DL (120-200); CHOLESTEROL/ HDL RATIO 4.67 RATIO; CREATININE 1.04 MG/DL (0.50-1.00); GLOMERULAR FILTRATION RATE 55 ML/MIN (>89); GLUCOSE,RANDOM 410 MG/DL (74-106); SODIUM (NA) 138 MEQ/L (136-145); TOTAL BILIRUBIN ADULT 0.4 MG/DL (0.2-1.0); TOTAL PROTEIN 6.5 GM/DL (6.4-8.2); TRIGLYCERIDES 467 MG/DL (42-150)
[2017-08-06] MEDS ORDERED: LEVEMIR SQ (14:28)
[2017-08-06 16:29] LABS: HEMOGLOBIN A1C 12.3 % (4.3-6.0)
[2017-08-06 16:37] LABS: HEMOGLOBIN A1C 12.3 % (4.3-6.0)
[2017-08-06 17:39] LABS: TROPONIN I LESS THAN 0.02 NG/ML (0.02-0.05)
[2017-08-06] MEDS ORDERED: ATORVASTATIN 80 MG TAB PO SCH (21:00)
== END 2017-08-06 18:56 | disposition home or self-care (01) ==
LOC: NEPC 20:52 → NEDA 22:41 → NEPFCDU 08-06 01:16
PROVIDERS: ADMIT Internal Medicine; ATTEND Internal Medicine
DX: R07.89 Other chest pain (principal); R06.00 Dyspnea, unspecified; K85.90 Acute pancreatitis without necrosis or infection, unspecified; N17.9 Acute kidney failure, unspecified; R94.31 Abnormal electrocardiogram [ECG] [EKG]; R42 Dizziness and giddiness; I25.10 Atherosclerotic heart disease of native coronary artery without angina pectoris; I10 Essential (primary) hypertension; E78.5 Hyperlipidemia, unspecified; E11.65 Type 2 diabetes mellitus with hyperglycemia; J44.9 Chronic obstructive pulmonary disease, unspecified; M79.7 Fibromyalgia; F17.200 Nicotine dependence, unspecified, uncomplicated; Z95.5 Presence of coronary angioplasty implant and graft; Z79.4 Long term (current) use of insulin; Z79.82 Long term (current) use of aspirin; Z91.11 Patient's noncompliance with dietary regimen
CPT/HCPCS: 71046; 80053; 80061; 82550; 82948; 83036; 83690; 83735; 83880; 84484; 85025; 85610; 85730; 93005; 96361; 96372; 96374; 99285; G0378; J1815; J7030; J7040